=== PATIENT | female | born 1965 | race Caucasian/White ===

== ENCOUNTER 2022-10-11 07:22 | Emergency (ER) | payer MEDICARE ==
[2022-10-11] MEDS ORDERED: Rocuronium 50 MG/5 ML Vial ONE (07:40)
[2022-10-11] MEDS ORDERED: Rocuronium 50 MG/5 ML Vial IV ONE (07:40)
[2022-10-11] MEDS ORDERED: cefTRIAXone 1 GM in Sodium Chloride 0.9% 50 ML IV ONE (07:44)
[2022-10-11] MEDS ORDERED: Sodium Chloride 0.9% 1,000 ML IV ONE (07:44)
[2022-10-11 07:49] LABS: HEMATOCRIT 34.4 % (34.3-46.0); HEMOGLOBIN 10.8 g/dL (11.2-15.5); MEAN CORPUSCULAR HEMOGLOBIN 30.9 pg (31.6-35.5); MEAN CORPUSCULAR HGB CONC 31.4 g/dL (31.6-35.5); MEAN CORPUSCULAR VOLUME 98.6 fL (81.4-99.0); RED BLOOD CELL COUNT 3.49 M/uL (3.77-5.24); WHITE BLOOD CELL COUNT,WBC 8.4 K/uL (3.2-11.0)
[2022-10-11 07:51] LABS: BASE EXCESS ARTERIAL 2.7 mm/L; BICARBONATE,ARTERIAL 26.5 mmol/L (22.0-26.0); CARBOXYHEMOGLOBIN 3.7 % (0.0-1.6); METHEMOGLOBIN 0.7 %; O2 SATURATION ARTERIAL 98.9 % (95.0-98.0); OXYHEMOGLOBIN 94.5 %; PCO2 ARTERIAL 39.5 mmHg (35.0-42.0); TOTAL HEMOGLOBIN 11.3 g/dL (12.0-16.0)
[2022-10-11] MEDS ORDERED: SODIUM CHLORIDE 0.9% IV SCH ×2 (08:00→10:00)
[2022-10-11] MEDS ORDERED: ROCURONIUM IV SCH (08:00)
[2022-10-11 08:05] LABS: INR 1.7; PROTHROMBIN TIME 16.7 sec (9.2-10.6)
[2022-10-11 08:14] LABS: A/G RATIO 0.5 (1.2-2.2); ALANINE AMINOTRANSFERASE,ALT 19 U/L (12-78); ALBUMIN 2.6 g/dL (3.4-5.0); ALKALINE PHOSPHATASE 101 U/L (46-116); ASPARTATE AMNIOTRANSFERASE,AST 39 U/L (15-37); BILIRUBIN TOTAL 0.7 mg/dL (0.2-1.0); BLOOD UREA NITROGEN,BUN 41 mg/dL (7-18); CALCIUM 9.1 mg/dL (8.5-10.1); CARBON DIOXIDE,CO2 29 mmol/L (21-32); CHLORIDE,CL 126 mmol/L (100-108); CREATININE 2.3 mg/dL (0.6-1.0); ESTIMATED GFR 24 mL/min (>60); GLUCOSE RANDOM 161 mg/dL (74-106); POTASSIUM,K 3.3 mmol/L (3.6-5.2); PROTEIN TOTAL,TP 8.1 g/dL (6.4-8.2)
[2022-10-11 08:17] LABS: ANION GAP 12.3 mmol/L (5.0-14.0); SODIUM,NA 164 mmol/L (140-148)
[2022-10-11] MEDS ORDERED: Norepinephrine Bit/D5W Premix 4 MG in Premix Bag 1 BAG IV SCH (08:45)
[2022-10-11 08:56] LABS: APPEARANCE,URINE CLOUDY (CLEAR); BILIRUBIN,URINE MODERATE (NEGATIVE); COLOR,URINE YELLOW (YELLOW); GLUCOSE,URINE NEGATIVE (NEGATIVE); KETONES,URINE NEGATIVE (NEGATIVE); LEUKOCYTE ESTERASE,URINE TRACE (NEGATIVE); NITRITE,URINE NEGATIVE (NEGATIVE); OCCULT BLOOD,URINE NEGATIVE (NEGATIVE); PH,URINE 5.5 (5.0-8.0); PROTEIN,URINE 100 mg/dL (NEGATIVE)
[2022-10-11 09:04] LABS: AMPHETAMINES SCREEN, URINE NEGATIVE (NEGATIVE); BARBITURATE SCREEN,URINE NEGATIVE (NEGATIVE); BENZODIAZEPINES SCREEN,URINE PRESUMPTIVE POSITIVE (NEGATIVE); METHADONE SCREEN, URINE NEGATIVE (NEGATIVE); METHAMPHETAMINES SCREEN, URINE NEGATIVE (NEGATIVE); OXYCODONE SCREEN,URINE NEGATIVE (NEGATIVE); PROPOXYPHENE SCREEN,URINE NEGATIVE (NEGATIVE); THC SCREEN,URINE 50 NG/ML NEGATIVE (NEGATIVE)
[2022-10-11 09:05] LABS: AMORPHOUS SEDIMENT,URINE NOT SEEN; BACTERIA,URINE MODERATE; EPITHELIAL CELLS,URINE MANY; MUCUS,URINE MANY; RBC,URINE 20-30 (0-5)
[2022-10-11] MEDS ORDERED: Ketamine 500 MG/5 ML MDV IV ONE (09:39)
[2022-10-11] MEDS ORDERED: KETAMINE IV SCH (10:00)
== END 2022-10-11 10:10 | disposition critical access hospital (66) ==
LOC: JP.ED 07:22
DX: R40.4 Transient alteration of awareness (principal); R40.2432 Glasgow coma scale score 3-8, at arrival to emergency department; Z88.5 Allergy status to narcotic agent; Z88.0 Allergy status to penicillin
CPT/HCPCS: 31500; 36415; 36600; 71045; 80053; 80305; 80307; 81001; 82803; 83605; 84484; 85027; 85610; 87040; 93005; 96365; 96367; 96368; 96376; 99285; J0696; J3490; J7030; J7050; 93010